=== PATIENT | male | born 1950 | race Caucasian/White ===

== ENCOUNTER 2016-09-18 17:54 | Emergency (ER) | payer SELFPAY ==
[2016-09-18] MEDS ORDERED: metroNIDAZOLE IV PREMIX 500MG 500 MG in PREMIX BAG 1 BAG IVPB ONE (18:07)
[2016-09-18] MEDS ORDERED: levoFLOXacin 500MG IV 500 MG in PREMIX BAG 1 BAG IVPB ONE (18:07)
[2016-09-18] MEDS ORDERED: FUROSEMIDE INJ 100 MG/10 ML VIAL IV ONE (18:08)
--- NOTE | 2016-09-18 18:10 | ED.PDOC ---
History of Present Illness - General Source: patient Exam Limitations: no limitations - History of Present Illness Timing/Duration: unsure, constant, getting worse Severity: moderate Improving Factors: nothing Worsening Factors: nothing Associated Symptoms: cough, loss of appetite, malaise, nausea/vomiting, shortness of breath, weakness <Akin Matthews - Last Filed: 09/18/16 19:11> <Marcela London Rj - Last Filed: 09/18/16 22:24> - General Chief Complaint: Respiratory Problem Stated Complaint: difficulty breathing Time Seen by Provider: 09/18/16 17:58 - History of Present Illness Allergies/Adverse Reactions: Allergies Amoxicillin Allergy (Verified 09/18/16 18:12) Other Gives patient a bad headache Hydrocodone Allergy (Verified 09/18/16 18:12) Other Gives patient a bad headache Home Medications: Ambulatory Orders Doxazosin Mesylate 2 mg PO DAILY 02/07/14 Lisinopril 20 mg PO DAILY 02/07/14 Naproxen [Naprosyn] 500 mg PO BID PRN 02/07/14 Levofloxacin [Levaquin] 500 mg PO DAILY #7 tab 09/04/15 Review of Systems - Review of Systems Constitutional: States: malaise, weakness EENTM: States: no symptoms reported Respiratory: States: cough, orthopnea, short of breath Cardiology: States: palpitations Gastrointestinal/Abdominal: States: abdominal pain - mild, diarrhea, nausea Genitourinary: States: no symptoms reported - he has had some difficulty with urination Musculoskeletal: States: other - generalized body aches Skin: States: change in color - he does have severe jaundice Neurological: States: tremors, weakness, other - he has had significant confusion All other Systems: No Change from Baseline <Akin Matthews - Last Filed: 09/18/16 19:11> Past Medical History (General) - Patient Medical History Hx Hypertension: Yes Hx Gastroesophageal Reflux: Yes - Vaccination History Hx Tetanus, Diphtheria Vaccination: No Hx Influenza Vaccination: No Hx Pneumococcal Vaccination: No - Social History Hx Tobacco Use: No Hx Alcohol Use: Yes - daily Hx Substance Use: Yes Hx Substance Use Treatment: No Hx Depression: No - Female History Patient : No <Akin Matthews - Last Filed: 09/18/16 19:11> Family Medical History - Family History Father Family History: Unknown Living Status: Hx Family Cancer: Yes <ByronAnnamariavaldemar Irving - Last Filed: 09/18/16 19:11> Physical Exam - Physical Exam General Appearance: Ill Appearing - he is overtly jaundiced with a very taut abdomen with ascites, Other - the patient is drowsy and easily confused. He does know what hospital he is at. He does know much going on. Eye Exam: bilateral normal - with the exception of scleral icterus Ears, Nose, Throat: normal ENT inspection, normal pharynx - with the exception of obvious jaundice Neck: non-tender, full range of motion, supple Respiratory: chest non-tender, respiratory distress - tachypnea with mild increased work of breathing, accessory muscle use - mild Cardiovascular/Chest: normal peripheral pulses, tachycardia - there appears to be a sinus tachycardia Peripheral Pulses: radial,right: 2+, radial,left: 2+, dorsalis pedis,right: 2+, dorsalis pedis,left: 2+ Gastrointestinal/Abdominal: other - abdomen is distended and diffusely uncomfortable to palpation. No definite rebound or peritoneal signs. He does have a definitive caput medusa. There is a large amount of ascites. Rectal Exam: deferred Back Exam: normal inspection Extremity: normal range of motion, non-tender, normal inspection, no pedal edema , normal capillary refill Neurologic: oriented x 3 - but easily confused. He is drowsy. Skin Exam: jaundice Comments: Vital Signs - 24 hr 09/18/16 18:00 Temperature 97.0 F L Pulse Rate 129 H Pulse Rate [ 129 H Left Radial] Respiratory 26 H Rate Blood Pressure 159/100 [Right Arm] O2 Sat by Pulse 93 L Oximetry <Akin Matthews - Last Filed: 09/18/16 19:11> Progress - Results/Orders Results/Orders: risks benefits for paracentesis explained and patient agrees to proceed. Ultrasound used to find pockets of ascitic fluid. Abdominal prep performed. Sterile technique used. 18-gauge needle used to localize fluid collections and vaccutainers used as well to remove fluid. even with ultrasound, after 4 different sites found, I was unable to remove 550 cc of serous fluid. No prince pus. Minimal blood. Z lines were used for entry at each site. fluid is sent for white blood cell count, Gram stain and culture. Patient tolerated the procedure well. Estimated blood loss less than 1 cc. <Akin Matthews L - Last Filed: 09/18/16 19:11> - Results/Orders Results/Orders: 09/18/16 09/18/16 09/18/16 17:59 18:00 19:00 Temperature 97.0 F L Pulse Rate 129 H 124 H Pulse Rate [ 129 H 124 H Left Radial] Respiratory 26 H 26 H 26 H Rate Blood Pressure 159/100 132/91 [Right Arm] O2 Sat by Pulse 93 L 94 L Oximetry 09/18/16 09/18/16 09/18/16 19:05 20:12 21:20 Temperature 97.0 F L 97.1 F L Pulse Rate 124 H 115 H Pulse Rate [ 119 H 121 H 115 H Left Radial] Respiratory 18 18 18 Rate Blood Pressure 132/91 121/80 136/71 [Right Arm] O2 Sat by Pulse 94 L 97 95 Oximetry 09/18/16 17:59 Telemetry .CONTINUOUS 09/18/16 18:00 EKG STAT 09/18/16 18:10 BLOOD CULTURE Stat 09/18/16 18:45 BODY FLUID CULTURE Routine GRAM STAIN Routine 09/18/16 18:50 CELL COUNT/DIFF,PERITONEAL FLD Stat 09/18/16 18:57 Catheter:[place] ONCE Laboratory Results WBC 12.7 K/mm3 (4.8-10.8) H 09/18/16 18:07 RBC 3.32 M/mm3 (4.70-6.10) L 09/18/16 18:07 Hgb 12.5 gm/dL (14.0-18.0) L 09/18/16 18:07 Hct 37.3 % (42.0-52.0) L 09/18/16 18:07 MCV 112.3 fl (80.0-94.0) H 09/18/16 18:07 MCH 37.6 pg (27.0-31.0) H 09/18/16 18:07 MCHC 33.6 g/dL (33.0-37.0) 09/18/16 18:07 RDW 21.5 % (11.5-14.5) H 09/18/16 18:07 Plt Count 122 K/mm3 (130-400) L 09/18/16 18:07 MPV 9.1 fl (7.40-10.4) 09/18/16 18:07 Absolute Neuts (auto) Not Reportable 09/18/16 18:07 Absolute Lymphs (auto) Not Reportable 09/18/16 18:07 Absolute Monos (auto) Not Reportable 09/18/16 18:07 Absolute Eos (auto) Not Reportable 09/18/16 18:07 Neutrophils % Not Reportable 09/18/16 18:07 Neutrophils % (Manual) 87.0 % 09/18/16 18:07 Lymphocytes % Not Reportable 09/18/16 18:07 Lymphocytes % (Manual) 5.0 % 09/18/16 18:07 Monocytes % Not Reportable 09/18/16 18:07 Monocytes % (Manual) 6.0 % 09/18/16 18:07 Eosinophils % Not Reportable 09/18/16 18:07 Basophils % Not Reportable 09/18/16 18:07 Band Neutrophils 2.0 % 09/18/16 18:07 Platelet Estimate Decreased (NORMAL) 09/18/16 18:07 Anisocytosis 2+ 09/18/16 18:07 Macrocytosis 2+ 09/18/16 18:07 Target Cells 1+ 09/18/16 18:07 PT 16.4 SECONDS (9.4-12.5) H 09/18/16 18:07 INR 1.460 09/18/16 18:07 PTT (SP) 40.8 SECONDS (25.1-36.5) H 09/18/16 18:07 Sodium 134 mmol/L (135-145) L 09/18/16 18:07 Potassium 3.6 mmol/L (3.6-5.0) 09/18/16 18:07 Chloride 94 mmol/L (101-111) L 09/18/16 18:07 Carbon Dioxide 21 mmol/L (21-31) 09/18/16 18:07 Anion Gap 22.6 (12-18) H 09/18/16 18:07 BUN 20 mg/dL (7-18) H 09/18/16 18:07 Creatinine 0.82 mg/dL (0.6-1.3) 09/18/16 18:07 BUN/Creatinine Ratio 24.4 (10-20) H 09/18/16 18:07 Random Glucose 192 mg/dL (70-105) H 09/18/16 18:07 Serum Osmolality 276.0 mOsm/L (275-295) 09/18/16 18:07 Calcium 7.8 mg/dL (8.4-10.2) L 09/18/16 18:07 Magnesium 2.2 mg/dL (1.8-2.5) 09/18/16 18:07 Total Bilirubin 27.5 mg/dL (0.2-1.0) H* 09/18/16 18:07 AST 262 IU/L (10-42) H 09/18/16 18:07 ALT 59 IU/L (10-60) 09/18/16 18:07 Alkaline Phosphatase 284 IU/L (42-121) H 09/18/16 18:07 Ammonia 77 umol/L (10-35) H* 09/18/16 18:07 Creatine Kinase 51 IU/L (38-174) 09/18/16 18:07 CK-MB (CK-2) 2.6 ng/mL (0.0-4.4) 09/18/16 18:07 CK-MB (CK-2) % Not Reportable 09/18/16 18:07 Troponin I 0.04 ng/mL (0.01-0.05) 09/18/16 18:07 B-Natriuretic Peptide 39.6 pg/ml (0-100) 09/18/16 18:07 Serum Total Protein 7.6 gm/dL (6.4-8.2) 09/18/16 18:07 Albumin 2.2 g/dl (3.2-5.5) L 09/18/16 18:07 Globulin 5.4 gm/dL (2.3-3.5) H 09/18/16 18:07 Albumin/Globulin Ratio 0.4 (1.1-1.9) L 09/18/16 18:07 Amylase 126 U/L (28-100) H 09/18/16 18:07 Lipase 154 U/L (22-51) H 09/18/16 18:07 Urine Color Brown (Yellow) 09/18/16 19:15 Urine Appearance Cloudy (Clear) 09/18/16 19:15 Urine pH 6.0 (4.5-7.8) 09/18/16 19:15 Ur Specific Benedict 1.020 (1.005-1.030) 09/18/16 19:15 Urine Protein 30 mg/dL 09/18/16 19:15 Urine Glucose (UA) 100 mg/dL (Negative) H 09/18/16 19:15 Urine Ketones Trace mg/dL (NEGATIVE) 09/18/16 19:15 Urine Blood Negative (Negative) 09/18/16 19:15 Urine Nitrite Negative 09/18/16 19:15 Urine Bilirubin Large (NEGATIVE) 09/18/16 19:15 Urine Urobilinogen 4.0 mg/dL (0.2-1.0) H 09/18/16 19:15 Ur Leukocyte Esterase Negative (Negative) 09/18/16 19:15 Urine RBC 0 /hpf 09/18/16 19:15 Urine WBC 0 /hpf 09/18/16 19:15 Ur Epithelial Cells 0 /hpf 09/18/16 19:15 Urine Bacteria 0 09/18/16 19:15 Urine Mucus Large 09/18/16 19:15 Ethyl Alcohol 372.20 mg/dL (0-79) H* 09/18/16 19:35 - EKG/XRAY/CT XRAY: chest - Dec. lung volumes, linar opacity L lung - scar vs. subsecmental atelectasis <Marcela London - Last Filed: 09/18/16 22:24> Departure <Akin Matthews - Last Filed: 09/18/16 19:11> - Departure Time of Disposition: 22:14 <Marcela London - Last Filed: 09/18/16 22:24> - Departure Clinical Impression: End stage liver disease, Thrombocytopenia due to diminished platelet production , Hyperammonemia, Hyperbilirubinemia, Ascites due to alcoholic cirrhosis Altered mental status Qualifiers: Altered mental status type: disorientation Qualifier Code: (R41.0) Disorientation, unspecified Alcohol intoxication Qualifiers: Complication of substance-induced condition: with unspecified complication Qualifier Code: (F10.129) Alcohol abuse with intoxication, unspecified Disposition: Transfer to Hospital Condition: Poor Home Medications: Ambulatory Orders Doxazosin Mesylate 2 mg PO DAILY 02/07/14 Lisinopril 20 mg PO DAILY 02/07/14 Naproxen [Naprosyn] 500 mg PO BID PRN 02/07/14 Levofloxacin [Levaquin] 500 mg PO DAILY #7 tab 09/04/15 Transfer to Outside Facility - Transfer Information Accepting Provider:: Dr. Elaine Accepting Facility: [facility] Reason for Transfer: inadequate staffing - Staff not available to properly care for a patient with this severity and type of diagnosis <Marcela London - Last Filed: 09/18/16 22:24>
[2016-09-18] MEDS ORDERED: levoFLOXacin 500MG IV 100 ML IVPB ONE (18:14)
--- NOTE | 2016-09-18 18:14 | RAD ---
EXAM DESCRIPTION: Chest,1 View CLINICAL HISTORY: sob COMPARISON: September 04, 2015 FINDINGS: Cardiac silhouette is within normal limits. EKG leads project over the chest. Decreased lung volumes could be secondary to underinflation. Linear opacity in the left lung may represent scar versus subsegmental atelectasis. There is no focal parenchymal or pleural disease. There is no acute osseous process visualized. IMPRESSION: Decreased lung volumes could be secondary to underinflation. Linear opacity in the left lung may represent scar versus subsegmental atelectasis. Electronically signed by: Isreal Howard MD 09/18/2016 6:14 PM [employer]
[2016-09-18] MEDS ORDERED: POVIDONE IODINE 10 % 15 ML UD TOP ONE (18:15)
[2016-09-18] MEDS ORDERED: ONDANSETRON INJ 4 MG/2 ML VIAL IV ONE (18:36)
[2016-09-18] MEDS ORDERED: ONDANSETRON INJ 4 MG/2 ML VIAL ONE (18:36)
[2016-09-18] MEDS ORDERED: metroNIDAZOLE IV PREMIX 500MG 100 ML IVPB ONE (18:53)
[2016-09-18] MEDS ORDERED: MEROPENEM 1 GM in SODIUM CHL 0.9% 50ML MIN-BAG+ 50 ML IVPB ONE (20:28)
[2016-09-18] MEDS ORDERED: MEROPENEM 1 GM VIAL IVPB ONE (20:35)
[2016-09-18] MEDS ORDERED: SODIUM CHL 0.9% 50ML MIN-BAG+ 50 ML IVPB ONE (20:35)
[2016-09-18 22:57] VITALS: O2SAT 96
[2016-09-18 23:13] VITALS: TEMP 97.4
[2016-09-18] MEDS ORDERED: PROMETHAZINE HCL INJ 12.5 MG in SODIUM CHLORIDE 0.9% 50ML 50 ML IVPB ONE (23:38)
[2016-09-18] MEDS ORDERED: SODIUM CHLORIDE 0.9% 50ML 50 ML ONE (23:39)
[2016-09-18] MEDS ORDERED: PROMETHAZINE HCL INJ 25 MG/ML VIAL ONE (23:39)
[2016-09-19 02:07] VITALS: BP 142/88
== END 2016-09-19 01:20 | disposition short-term general hospital (02) ==
LOC: ER 17:54
DX: K70.31 Alcoholic cirrhosis of liver with ascites (principal); F10.229 Alcohol dependence with intoxication, unspecified; Y90.8 Blood alcohol level of 240 mg/100 ml or more; K72.90 Hepatic failure, unspecified without coma; D69.59 Other secondary thrombocytopenia; E72.4 Disorders of ornithine metabolism; E80.6 Other disorders of bilirubin metabolism; R41.0 Disorientation, unspecified; I10 Essential (primary) hypertension; K21.9 Gastro-esophageal reflux disease without esophagitis; Z79.899 Other long term (current) drug therapy; Z88.6 Allergy status to analgesic agent; Z88.3 Allergy status to other anti-infective agents
CPT/HCPCS: 36415; 71010; 80053; 80320; 81001; 82140; 82150; 82550; 82553; 83690; 83735; 83880; 84484; 85025; 85610; 85730; 87040; 87070; 87205; 89051; 93005; A4216; J1940; J1956; J2185; J2405; J2550; J3490; J7050